=== PATIENT | male | born 1970 | race Caucasian/White ===

== ENCOUNTER 2019-08-25 19:42 | Emergency (ER) | payer BC ==
[2019-08-25 20:06] VITALS: BP 129/86
--- NOTE | 2019-08-25 20:07 | UC ---
Skin Complaint HPI - HPI Summary HPI Summary: 48 yo male presents with rash. He tells me that 3 days ago [place] touched a tree with his gloves on and then remembers wiping his face. Later that night he noticed some itching to his face. The next day he woke up with a red blister-like rash to his cheeks. He suspected he encountered poison oak/cassie/sumac and has been applying OTC lotion which has helped. He mentions that he is here because one of his friends made him concerned that this will lead to infection or flesh eating bacteria. He denies fever, chills, swelling or eyes, throat, or lips. - History of Current Complaint Chief Complaint: UCSkin Time Seen by Provider: 08/25/19 20:07 Stated Complaint: POISON OAK Hx Obtained From: Patient Onset/Duration: Sudden Onset Onset Severity: Mild Current Severity: Mild Pain Intensity: 3 Pain Scale Used: 0-10 Numeric - Allergy/Home Medications Allergies/Adverse Reactions: Allergies Allergy/AdvReac Type Severity Reaction Status Date / Time No Known Allergies Allergy Verified 08/25/19 20:06 Home Medications: Home Medications Ivarest Topical* PRN 08/25/19 [History] PMH/Surg Hx/FS Hx/Imm Hx - Additional Past Medical History Additional PMH: None - Surgical History Surgical History: Yes Surgery Procedure, Year, and Place: pins in left 4th finger - Family History Known Family History: Positive: Non-Contributory Family History: NON CONTRIBUTORY - Social History Occupation: Employed Full-time Lives: With Family Alcohol Use: None Substance Use Type: None Smoking Status (MU): Never Smoked Tobacco Review of Systems All Other Systems Reviewed And Are Negative: No Constitutional: Positive: Negative Skin: Positive: Rash Eyes: Positive: Negative ENT: Positive: Negative Respiratory: Positive: Negative Cardiovascular: Positive: Negative Gastrointestinal: Positive: Negative Neurological: Positive: Negative Psychological: Positive: Negative Physical Exam - Summary Physical Exam Summary: GENERAL: NAD. WDWN. No distress. SKIN: Mild redness and scant blistering on b/l cheeks. Left cheek with mild honey-crusted drainage on inferomedial aspect. HEENT: No periorbital, lip, or other facial edema. Airway patent without oropharyngeal edema. NECK: Supple. Nontender. No lymphadenopathy. CHEST: CTAB. No wheezing. No accessory muscle use. Breathing comfortably and in no distress. CV: RRR. Pulses intact. Cap refill <2seconds NEURO: Alert. PSYCH: Age appropriate behavior. Triage Information Reviewed: Yes Vital Signs: Initial Vital Signs Temp 98 F 08/25/19 20:02 Pulse 83 08/25/19 20:02 Resp 16 08/25/19 20:02 BP 129/86 08/25/19 20:02 Pulse Ox 98 08/25/19 20:02 Vital Signs Reviewed: Yes Course/Dx - Course Course Of Treatment: Contact dermatitis. Although improving - Given facial involvement will rx for prednisone po at this time. Also appears to have an early impetigo - will rx for bactroban. - Diagnoses Provider Diagnosis: Contact dermatitis, Impetigo Discharge ED - Sign-Out/Discharge Documenting (check all that apply): Patient Departure All imaging exams completed and their final reports reviewed: No Studies - Discharge Plan Condition: Stable Disposition: HOME Prescriptions: Mupirocin 2% OINT* [Bactroban 2 % Oint*] 1 applic TOPICAL BID #1 tube predniSONE TAB* [Deltasone 20 MG TAB*] 60 mg PO DAILY #14 tab Patient Education Materials: Poison Cassie (ED) Referrals: Arlene Torre MD [Primary Care Provider] - Additional Instructions: If you develop a fever, shortness of breath, chest pain, new or worsening symptoms - please call your PCP or go to the ED immediately. - Billing Disposition and Condition Condition: STABLE Disposition: Home
== END 2019-08-25 20:23 | disposition home or self-care (01) ==
LOC: UCEAST 19:42
DX: L25.9 Unspecified contact dermatitis, unspecified cause (principal); L01.00 Impetigo, unspecified
CPT/HCPCS: 99212; G0463